=== PATIENT | male | born 1970 | race Two or more races ===

== ENCOUNTER 2019-01-15 13:43 | Emergency (ER) | payer OTHER ==
[~2019-01-15] VITALS: Ht 175.3 cm; Wt 83.5 kg
[2019-01-15] MEDS ORDERED: MEDROLPACK PO (18:30)
[2019-01-15] MEDS ORDERED: CELEBREX200MG PO (18:30)
[2019-01-15] MEDS ORDERED: SKELAXIN800 MG PO (18:30)
== END 2019-01-15 19:14 | disposition home or self-care (01) ==
LOC: ER 13:43
DX: M54.89 Other dorsalgia (principal); M54.2 Cervicalgia

== ENCOUNTER 2019-04-08 11:29 | Emergency (ER) | payer OTHER ==
[~2019-04-08] VITALS: Ht 175.3 cm; Wt 81.6 kg
[~2019-04-08 11:29] MED LIST: CELEBREX200MG PO; MEDROLPACK PO; SKELAXIN800 MG PO
[2019-04-08] MEDS ORDERED: NEURONTIN300 MG PO (13:36)
== END 2019-04-08 17:44 | disposition home or self-care (01) ==
LOC: ER 11:29
DX: J11.1 Influenza due to unidentified influenza virus with other respiratory manifestations (principal)